=== PATIENT | female | born 1990 | race Caucasian/White ===

== ENCOUNTER 2020-09-30 05:00 | Emergency (ER) | payer OTHER ==
--- NOTE | 2020-10-01 17:07 | EDPHYS ---
Physician Documentation [facility] Name: Sidra Perez Age: 29 yrs Sex: Female : 1990 Arrival Date: 09/30/2020 Time: 05:04 Bed 20 Private MD: ED Physician Marvin Harding HPI: 09/30 06:06 This 29 yrs old Female presents to ER via Ambulatory with complaints of Ear kb Pain. 06:06 The patient presents with pain, moderate. The complaints affect the right ear. The kb patient has not recently seen a physician. 06:06 Onset: The symptoms/episode began/occurred 2 day(s) ago. Modifying factors: The kb symptoms are alleviated by nothing, the symptoms are aggravated by pulling on ears, touching. Associated signs and symptoms: The patient has no apparent associated signs or symptoms. Severity of symptoms: At their worst the symptoms were moderate in the emergency department the symptoms are unchanged. The patient has not experienced similar symptoms in the past. 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 - Social history:: Smoking status: Patient reports the use of cigarette tobacco products, 3 to 4 daily. ROS: 06:05 Constitutional: Negative for fever, chills, and weight loss. kb 06:05 ENT: Positive for ear pain, Negative for drainage from ear(s). 06:05 All other systems are negative. Exam: 06:05 Constitutional: This is a well developed, well nourished patient who is awake, alert, kb and in no acute distress. Head/Face: Normocephalic, atraumatic. Respiratory: Respirations even and unlabored. No increased work of breathing, no retractions or nasal flaring. Skin: Warm, dry with normal turgor. Normal color. MS/ Extremity: Pulses equal, no cyanosis. Neurovascular intact. Full, normal range of motion. Neuro: Awake and alert, GCS 15, oriented to person, place, time, and situation. Moves all extremities. Normal gait. Psych: Awake, alert, with orientation to person, place and time. Behavior, mood, and affect are within normal limits. 06:05 ENT: External ear(s): are unremarkable, Ear canal(s): erythema, that is moderate, of the right canal, purulent discharge, that is minimal, in the right canal, swelling, that is moderate, of the right canal, TM's: are normal. Vital Signs: 05:30 BP 121 / 93; Pulse 77; Resp 16 S; Temp 98.2(O); Pulse Ox 100% on R/A; Weight 99.79 kg bb (R); Height 5 ft. 7 in. (170.18 cm) (R); Pain 9/10; 05:30 Body Mass Index 34.46 (99.79 kg, 170.18 cm) bb MDM: 06:01 Patient medically screened. kb 06:05 Data reviewed: vital signs, nurses notes. Data interpreted: Pulse oximetry: on room air kb is 100 %. Interpretation: normal. Counseling: I had a detailed discussion with the patient and/or guardian regarding: the historical points, exam findings, and any diagnostic results supporting the discharge/admit diagnosis, the need for outpatient follow up, a family practitioner, to return to the emergency department if symptoms worsen or persist or if there are any questions or concerns that arise at home. Administered Medications: No medications were administered Disposition Summary: 09/30/20 06:07 Discharge Ordered Location: Home kb Condition: Stable kb Diagnosis - Other otitis externa, right ear kb Followup: kb - With: Emergency Department - When: As needed - Reason: Worsening of condition Followup: kb - With: Private Physician - When: 2 - 3 days - Reason: Recheck today's complaints, Continuance of care, Re-evaluation by your physician Discharge Instructions: - Discharge Summary Sheet kb - Otitis Externa, [id number] kb - Ear Drops, Adult, [id number] kb Forms: - Medication Reconciliation Form kb - Thank You Letter kb - Antibiotic Education kb - Prescription Opioid Use kb Prescriptions: - Ciprodex 0.3-0.1 % Otic Drops, Suspension - instill 4 drops by OTIC route every 12 hours for 7 days , for ears ONLY; 1 kb Container; Refills: 0, Product Selection Permitted Signatures: Stephie Bolton FNP-C FNP-Ckb Lora Harrington, RN RN bb
--- NOTE | 2020-10-01 17:07 | ER ---
Nurse's Notes [facility] Name: Sidra Perez Age: 29 yrs Sex: Female : 1990 Arrival Date: 09/30/2020 Time: 05:04 Bed 20 Private MD: Diagnosis: Other otitis externa, right ear Presentation: 09/30 05:30 Chief complaint: Patient states: there is something wrong with my right ear the hearing bb is muffled and it is painful radiating into her jaw and neck she is currently being treated for a toothache with amoxicillin, tramadol, and ibuprofen. Coronavirus screen: At this time, the client does not indicate any symptoms associated with coronavirus-19. Ebola Screen: No symptoms or risks identified at this time. Initial Sepsis Screen: Does the patient meet any 2 criteria? No. Patient's initial sepsis screen is negative. Does the patient have a suspected source of infection? No. Patient's initial sepsis screen is negative. Risk Assessment: Do you want to hurt yourself or someone else? Patient reports no desire to harm self or others. Onset of symptoms was September 28, 2020. 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 - Social history:: Smoking status: Patient reports the use of cigarette tobacco products, 3 to 4 daily. Screenin:12 Abuse screen: Denies threats or abuse. Nutritional screening: No deficits noted. bb Tuberculosis screening: No symptoms or risk factors identified. Fall Risk None identified. Assessment: 06:12 General: Appears uncomfortable, Behavior is calm, cooperative. Pain: Complains of pain bb in right ear. Neuro: Level of Consciousness is awake, alert, obeys commands, Oriented to person, place, time, situation. Cardiovascular: No deficits noted. Respiratory: Respiratory effort is even, unlabored. EENT: Reports pain in right ear. Derm: Skin is pink, warm \T\ dry. Musculoskeletal: Circulation, motion, and sensation intact. 06:15 Reassessment: Patient is alert, oriented x 3, equal unlabored respirations, skin bb warm/dry/pink. pt verbalized understanding of and agrees to plan of care discharge instructions given pt ambulated with steady gait to exit. Vital Signs: 05:30 BP 121 / 93; Pulse 77; Resp 16 S; Temp 98.2(O); Pulse Ox 100% on R/A; Weight 99.79 kg bb (R); Height 5 ft. 7 in. (170.18 cm) (R); Pain 9/10; 05:30 Body Mass Index 34.46 (99.79 kg, 170.18 cm) bb ED Course: 05:04 Patient arrived in ED. ds1 05:33 Triage completed. bb 05:33 Arm band placed on Patient placed in waiting room, Patient notified of wait time. bb 06:00 Stephie Bolton [facility]C [facility] kb 06:00 Marvin Harding MD is Attending Physician. kb 06:09 Lora Harrington, RN is Primary Nurse. bb 06:12 Patient has correct armband on for positive identification. Bed in low position. bb 06:12 No provider procedures requiring assistance completed. Patient did not have IV access bb during this emergency room visit. Administered Medications: No medications were administered Outcome: 06:07 Discharge ordered by . kb 06:15 Discharged to home ambulatory. bb 06:15 Condition: stable 06:15 Discharge instructions given to patient, Instructed on discharge instructions, follow up and referral plans. medication usage, Demonstrated understanding of instructions, follow-up care, medications, Prescriptions given X 1. 06:16 Patient left the ED. bb Signatures: Stephie Bolton FNP-C FNP-Ckb Sanford, Demi ds1 Lora Harrington, RN RN erinn Corrections: (The following items were deleted from the chart) 05:33 05:30 Onset of symptoms was September 25, 2020 bb bb
[2020-10-02 04:10] VITALS: BP 121/93; TEMP 98.2; O2SAT 100
== END 2020-09-30 06:16 | disposition home or self-care (01) ==
LOC: ER 05:00
DX: H60.8X1 Other otitis externa, right ear (principal); F32.9 Major depressive disorder, single episode, unspecified; Z72.0 Tobacco use

== ENCOUNTER 2020-10-01 18:38 | Emergency (ER) | payer OTHER ==
--- NOTE | 2020-10-01 20:45 | EDPHYS ---
Physician Documentation [facility] Name: Sidra Carmona Age: 29 yrs Sex: Female : 1990 Arrival Date: 10/01/2020 Time: 18:59 Bed 10 Private MD: ED Physician Ambika Stauffer HPI: 10/01 20:42 This 29 yrs old Female presents to ER via Ambulatory with complaints of Ear ma2 Pain. 20:42 The patient presents with drainage, a fullness, swelling. The complaints affect the ma2 right ear. Associated signs and symptoms: Pertinent negatives: lightheadedness, shortness of breath, sore throat, tinnitus. Severity of symptoms: At their worst the symptoms were mild in the emergency department the symptoms are unchanged. The patient has not experienced similar symptoms in the past. - Social history:: Patient/guardian denies using alcohol, street drugs, The patient lives with family. - Family history:: not pertinent. ROS: 20:42 Constitutional: Negative for fever, chills, and weight loss. ma2 20:42 All other systems are negative. Exam: 20:42 Constitutional: This is a well developed, well nourished patient who is awake, alert, ma2 and in no acute distress. Head/Face: Normocephalic, atraumatic. Eyes: Pupils equal round and reactive to light, extra-ocular motions intact. Lids and lashes normal. Conjunctiva and sclera are non-icteric and not injected. Cornea within normal limits. Periorbital areas with no swelling, redness, or edema. ENT: Right otitis externa with edema of the external auditory canal, otherwise left ear is within normal limits left TM is within normal limits, nares patent. No nasal discharge, no septal abnormalities noted. Oropharynx with no redness, swelling, or masses, exudates, or evidence of obstruction, uvula midline. Mucous membranes moist. Neck: Trachea midline, no thyromegaly or masses palpated, and no cervical lymphadenopathy. Supple, full range of motion without nuchal rigidity, or vertebral point tenderness. No Meningismus. Chest/axilla: Normal chest wall appearance and motion. Nontender with no deformity. No lesions are appreciated. Cardiovascular: Regular rate and rhythm with a normal S1 and S2. No gallops, murmurs, or rubs. Normal PMI, no JVD. No pulse deficits. Respiratory: Lungs have equal breath sounds bilaterally, clear to auscultation and percussion. No rales, rhonchi or wheezes noted. No increased work of breathing, no retractions or nasal flaring. Abdomen/GI: Soft, non-tender, with normal bowel sounds. No distension or tympany. No guarding or rebound. No evidence of tenderness throughout. Skin: Warm, dry with normal turgor. Normal color with no rashes, no lesions, and no evidence of cellulitis. MS/ Extremity: Pulses equal, no cyanosis. Neurovascular intact. Full, normal range of motion. Neuro: Awake and alert, GCS 15, oriented to person, place, time, and situation. Cranial nerves II-XII grossly intact. Motor strength 5/5 in all extremities. Sensory grossly intact. Cerebellar exam normal. Normal gait. Vital Signs: 19:19 Pulse 93; Resp 20; Temp 98.6; Pulse Ox 100% ; Weight 109.77 kg (M); Height 5 ft. 7 in. kg (170.18 cm); Pain 7/10; 20:40 BP 121 / 70; Pulse 90; Resp 16; Pulse Ox 100% ; vg1 19:19 Body Mass Index 37.90 (109.77 kg, 170.18 cm) kg MDM: 20:38 Patient medically screened. ma2 20:42 Differential diagnosis: otitis media, otitis externa, acute otalgia, serotympanum. Data ma2 reviewed: vital signs, nurses notes. Counseling: I had a detailed discussion with the patient and/or guardian regarding: the historical points, exam findings, and any diagnostic results supporting the discharge/admit diagnosis, the presence of at least one elevated blood pressure reading (>120/80) during this emergency department visit, the need for outpatient follow up. Response to treatment: the patient's symptoms have markedly improved after treatment. Administered Medications: 21:05 Drug: Cipro (ciprofloxacin) 500 mg Route: PO; vg1 21:09 Follow up: Response: Medication administered at discharge. vg1 21:08 Drug: Ketorolac 60 mg Route: IM; Site: left gluteus; vg1 21:09 Follow up: Response: Medication administered at discharge. vg1 Disposition Summary: 10/01/20 20:44 Discharge Ordered Location: Home ma2 Condition: Stable ma2 Diagnosis - Other otitis externa, right ear ma2 Followup: ma2 - With: Private Physician - When: Tomorrow - Reason: Continuance of care Discharge Instructions: - Discharge Summary Sheet ma2 - Ear Drops, Adult ma2 - Otitis Externa, [id number] ma2 Forms: - Medication Reconciliation Form ma2 - Thank You Letter ma2 - Antibiotic Education ma2 - Prescription Opioid Use ma2 Prescriptions: - Cipro 500 mg Oral Tablet - take 1 tablet by ORAL route every 12 hours for 7 days; 14 tablet; Refills: 0, ma2 Product Selection Permitted - Diclofenac Sodium 75 mg Oral Tablet Sustained Release - take 1 tablet by ORAL route 2 times per day; 30 tablet; Refills: 0, Product ma2 Selection Permitted Signatures: Ambika Stauffer MD MD ma2 Mariana Boogie RN RN vg1
--- NOTE | 2020-10-01 20:45 | ER ---
Nurse's Notes [facility] Name: Sidra Carmona Age: 29 yrs Sex: Female : 1990 Arrival Date: 10/01/2020 Time: 18:59 Bed 10 Private MD: Diagnosis: Other otitis externa, right ear Presentation: 10/01 19:19 Chief complaint: Patient states: Pt was seen yesterday in the ER and diagnosed with kg otitis extrna and prescribed Ciprodex and has taken 3 doses but states that the drops have made it worse. The ear is more swollen, pt stated, "its moving my jaw over and my hearing is worse". Chief complaint:. Coronavirus screen: Client denies travel out of the [place] in the last 14 days. At this time, unable to obtain information related to travel outside the [place] At this time, the client does not indicate any symptoms associated with coronavirus-19. Ebola Screen: Patient negative for fever greater than or equal to 101.5 degrees Fahrenheit, and additional compatible Ebola Virus Disease symptoms Patient denies exposure to infectious person. Patient denies travel to an Ebola-affected area in the 21 days before illness onset. Initial Sepsis Screen: Does the patient meet any 2 criteria? No. Patient's initial sepsis screen is negative. Does the patient have a suspected source of infection? No. Patient's initial sepsis screen is negative. Risk Assessment: Do you want to hurt yourself or someone else? Patient reports no desire to harm self or others. Onset of symptoms was September 29, 2020. 19:19 Method Of Arrival: Ambulatory kg 19:19 Acuity: DARIAN 4 kg Triage Assessment: 19:22 General: Appears in no apparent distress. Behavior is calm, cooperative, appropriate kg for age, quiet. Pain: Complains of pain in right ear Pain currently is 7 out of 10 on a pain scale. at worst was 9 out of 10 on a pain scale. level that patient reports is acceptable is 3 out of 10 on a pain scale. Quality of pain is described as throbbing. EENT: Reports decreased hearing in right ear. - Social history:: Patient/guardian denies using alcohol, street drugs, The patient lives with family. - Family history:: not pertinent. Screenin:22 Abuse screen: Denies threats or abuse. Denies injuries from another. Nutritional kg screening: No deficits noted. Tuberculosis screening: No symptoms or risk factors identified. Fall Risk None identified. Assessment: 20:38 General: Appears in no apparent distress. comfortable, Behavior is calm, cooperative. vg1 Pain: Complains of pain in right ear Pain currently is 7 out of 10 on a pain scale. Pain began 1 day ago. Noted to be grimacing. Neuro: Level of Consciousness is awake, alert, obeys commands, Oriented to person, place, time, situation. Cardiovascular: Patient's skin is warm and dry. Respiratory: Airway is patent Respiratory effort is even, unlabored. GI: No signs and/or symptoms were reported involving the gastrointestinal system. : No signs and/or symptoms were reported regarding the genitourinary system. EENT: Tympanic membrane reddened on right ear. Derm: Skin is intact, is healthy with good turgor. Musculoskeletal: Circulation, motion, and sensation intact. Vital Signs: 19:19 Pulse 93; Resp 20; Temp 98.6; Pulse Ox 100% ; Weight 109.77 kg (M); Height 5 ft. 7 in. kg (170.18 cm); Pain 7/10; 20:40 BP 121 / 70; Pulse 90; Resp 16; Pulse Ox 100% ; vg1 19:19 Body Mass Index 37.90 (109.77 kg, 170.18 cm) kg ED Course: 18:59 Patient arrived in ED. as 19:22 Triage completed. kg 19:22 Patient has correct armband on for positive identification. kg 20:27 Danyel Chavis PA is PHCP. jmm 20:27 Ambika Stauffer MD is Attending Physician. jmm 20:29 Mariana Boogie, CHERIE is Primary Nurse. vg1 20:49 Arm band placed on. vg1 20:49 No provider procedures requiring assistance completed. Patient did not have IV access vg1 during this emergency room visit. Administered Medications: 21:05 Drug: Cipro (ciprofloxacin) 500 mg Route: PO; vg1 21:09 Follow up: Response: Medication administered at discharge. vg1 21:08 Drug: Ketorolac 60 mg Route: IM; Site: left gluteus; vg1 21:09 Follow up: Response: Medication administered at discharge. vg1 Outcome: 20:44 Discharge ordered by . ma2 21:09 Discharged to home ambulatory. vg1 21:09 Condition: stable 21:09 Discharge instructions given to patient, Instructed on discharge instructions, follow up and referral plans. medication usage, Demonstrated understanding of instructions, follow-up care, medications, Prescriptions given X 2. 21:10 Patient left the ED. vg1 Signatures: Danyel Chavis PA PA jmm Martinez, Amelia as Alzahri, Mohammad, MD MD ma2 Mariana Boogie RN RN vg1 Shelley Owens, CHERIE RN kg
[2020-10-01] MEDS ORDERED: KETOROLAC 30 MG/ML INJ ONE (21:23)
[2020-10-01] MEDS ORDERED: CIPROFLOXACIN HCL 500 MG TAB ONE (21:23)
[2020-10-03 02:43] VITALS: TEMP 98.6; O2SAT 100
[2020-10-03 02:45] VITALS: BP 121/70
== END 2020-10-01 21:10 | disposition home or self-care (01) ==
LOC: ER 18:38
DX: H60.8X1 Other otitis externa, right ear (principal)